=== PATIENT | female | born 1945 | race American Indian/Alaskan Native ===

== ENCOUNTER 2017-03-13 04:46 | Emergency (ER) | payer MEDICAID ==
[2017-03-13 04:52] VITALS: BP 132/64
--- NOTE | 2017-03-13 05:59 | XRay Report ---
FINAL REPORT PROCEDURE: XR HAND 2V RT TECHNIQUE: RIGHT hand radiographs, AP and lateral views. CPT 57553-AB HISTORY: painful rt hand s/p fall COMPARISON: No prior studies are available for comparison. FINDINGS: Fracture (s) and/or Dislocation(s): None . Alignment: Normal . Joint space(s): Mild narrowing of the joint spaces. Soft tissues: Normal . Bone mineralization: Normal . Foreign bodies: None . IMPRESSION: There is no evidence of an acute fracture or dislocation. Mild arthritis.
--- NOTE | 2017-03-13 07:52 | Emergency Department Report ---
HPI - General Chief Complaint: Fall Time Seen by Provider: 03/13/17 07:37 - HPI HPI: patient tripped and fell this morning while going to restroom, she c/o right hand pain, sharp, without radiation, pain is 5/10, she denies any alleviating or exacerbating factors. Patient is able to move right hand but it hurts when she moves it. ED Past Medical Hx - Past Medical History Previous Medical History?: Yes Hx Hypertension: Yes Hx Seizures: Yes - Surgical History Past Surgical History?: No - Family History Family history: hypertension - Social History Smoking Status: Current Every Day Smoker Substance Use Type: None - Medications Home Medications: Home Medications Medication Instructions Recorded Confirmed Last Taken Type Naproxen [Naprosyn] 375 mg PO BID PRN #14 tablet 03/13/17 Unknown Rx ED Review of Systems ROS: Stated complaint: RT HAND AND ARM PAIN/FALL Other details as noted in HPI Comment: All other systems reviewed and negative Cardiovascular: as per HPI Musculoskeletal: myalgia, other (right hand pain) Physical Exam - Physical Exam Vital Signs: Vital Signs 03/13/17 03/13/17 04:50 04:57 Temperature 97.7 F 97.7 F Pulse Rate 53 L 53 L Respiratory 18 18 Rate Blood Pressure 132/64 Blood Pressure 132/64 [Right] O2 Sat by Pulse 100 100 Oximetry Physical Exam: gen: alert and oriented x3 heent: perrla, eomi cv: rrr, nl s1, s2 lungs: cta bila abd: s,nt,nd, pos bs ext: no edema, right hand tenderness to palpation, no swelling, or redness. gu: pt refused neuro: no deficits psych: normal mood, ED Course Vital Signs 03/13/17 03/13/17 04:50 04:57 Temperature 97.7 F 97.7 F Pulse Rate 53 L 53 L Respiratory 18 18 Rate Blood Pressure 132/64 Blood Pressure 132/64 [Right] O2 Sat by Pulse 100 100 Oximetry Critical care attestation.: If time is entered above; I have spent that time in minutes in the direct care of this critically ill patient, excluding procedure time. ED Disposition Clinical Impression: Contusion of right hand Disposition: DC-01 TO HOME OR SELFCARE Is pt being admited?: No Does the pt Need Aspirin: No Condition: Stable Prescriptions: Naproxen [Naprosyn] 375 mg PO BID PRN #14 tablet PRN Reason: Pain Referrals: PRIMARY CARE, [Primary Care Provider] - 3-5 Days
== END 2017-03-13 08:10 | disposition home or self-care (01) ==
LOC: ED 04:46
DX: S60.221A Contusion of right hand, initial encounter (principal); I10 Essential (primary) hypertension; R56.9 Unspecified convulsions; F17.200 Nicotine dependence, unspecified, uncomplicated; W01.0XXA Fall on same level from slipping, tripping and stumbling without subsequent striking against object, initial encounter; Y93.89 Activity, other specified; Y99.8 Other external cause status; Y92.89 Other specified places as the place of occurrence of the external cause
CPT/HCPCS: 99283